=== PATIENT | male | born 1955 | race Caucasian/White ===

== ENCOUNTER 2017-08-03 08:20 | Day surgery (SDC) | payer BC ==
[2017-07-30 12:33] VITALS: BMI 36.0
[2017-08-03] MEDS ORDERED: LIDOCAINE HCL/PF 2% SDV 5ML VIAL ONE (08:38)
[2017-08-03] MEDS ORDERED: PROPOFOL 20 ML ONE ×2 (08:39)
[2017-08-03 11:14] VITALS: TEMP 97.9
[2017-08-03 11:39] VITALS: BP 130/80; PULSE 77
== END 2017-08-03 11:38 | disposition home or self-care (01) ==
LOC: FASU-ENDO 08:20
PROVIDERS: ATTEND Internal Medicine Gastroenterology
PROC: 0DJD8ZZ Inspection of Lower Intestinal Tract, Via Natural or Artificial Opening Endoscopic (ICD-10-PCS; principal; 2017-08-03 09:30)
DX: Z12.11 Encounter for screening for malignant neoplasm of colon (principal); Z80.0 Family history of malignant neoplasm of digestive organs

== ENCOUNTER 2023-03-02 07:39 | Day surgery (SDC) | payer OTHER, BC ==
[2023-02-25 11:59] VITALS: BMI 34.3
[2023-03-02 09:35] VITALS: PULSE 78; RESP 16; TEMP 98.1
[2023-03-02 09:45] VITALS: BP 135/73
== END 2023-03-02 10:03 | disposition home or self-care (01) ==
LOC: FASU-ENDO 07:39
PROVIDERS: ATTEND Internal Medicine Gastroenterology
PROC: 0DJD8ZZ Inspection of Lower Intestinal Tract, Via Natural or Artificial Opening Endoscopic (ICD-10-PCS; principal; 2023-03-02 09:14)
DX: Z12.11 Encounter for screening for malignant neoplasm of colon (principal); Z80.0 Family history of malignant neoplasm of digestive organs
CPT/HCPCS: 82962